=== PATIENT | female | born 2000 | race Caucasian/White ===

== ENCOUNTER 2022-11-14 16:05 | Inpatient (IN) | payer BC, SELFPAY ==
--- NOTE | ~2022-11-14 | CT_ITS ---
EXAMINATION: CT ABDOMEN AND PELVIS WITHOUT CONTRAST CLINICAL INFORMATION: Fever, abdominal/back pain plus UTI. COMPARISON: None TECHNIQUE: Multidetector volumetric imaging was performed from the superior aspect of the liver through the pubic symphysis. Sagittal and coronal reformatted images were obtained on the technologist's workstation. This CT examination was performed using dose optimization techniques as appropriate, variously including the following: *Automated exposure control *Adjustment of mA and/or kV according to patient size (this includes techniques or standardized protocols for targeted exams where dose is matched to indication/reason for exam; i.e. extremities or head) *Use of iterative reconstruction technique DLP: 403 mGy-cm FINDINGS: LUNG BASES: The visualized lung bases are unremarkable. LIVER, GALLBLADDER, AND BILIARY TREE: The liver is normal in size, shape, and attenuation. No focal hepatic lesion or biliary ductal dilatation is present. The gallbladder is unremarkable with no evidence of radiopaque gallstones, gallbladder wall thickening, or obvious pericholecystic inflammatory changes. PANCREAS: Unremarkable. SPLEEN: Unremarkable. ADRENAL GLANDS: Unremarkable. KIDNEYS AND URETERS: The kidneys are normal in size, shape, and attenuation. No hydronephrosis, hydroureter, or calculi seen. No perinephric stranding. There is a 1.3 cm cyst in the upper pole left kidney. BLADDER: Unremarkable. GASTROINTESTINAL TRACT: There is scattered stool and gas seen throughout the colon without any significant distention. The small bowel loops are normal caliber. The stomach is nondistended. ABDOMINAL WALL: No significant hernia is appreciated. LYMPH NODES: Normal. VASCULAR: Unremarkable. PELVIC VISCERA: The uterus is anteverted and appears unremarkable. Prominent hypodensity seen in the right ovary likely small cysts. There is no free free fluid. No abnormal pelvic lymphadenopathy. OSSEOUS STRUCTURES: No aggressive lytic or sclerotic process seen. CT/CT abdomen pelvis wo IV con IMPRESSION: 1. No acute intra-abdominal process seen. 2. Small cyst upper pole left kidney. No radiopaque urolith or hydroureteronephrosis. Fleischner guidelines were followed.
--- NOTE | 2022-11-14 16:21 | ED_ITS ---
HPI - Fever General Chief Complaint: Urogenital-Female <DANIEL Omer Last Filed: 11/14/22 16:29> Stated Complaint: vomiting,fever <DANIEL Omer Last Filed: 11/14/22 16:29> Time Seen by Provider: 11/14/22 19:58 <DANIEL Omer Last Filed: 11/14/22 16:29> Source: patient <DANIEL Reddy Last Filed: 11/14/22 21:01> Mode of arrival: ambulatory <DANIEL Reddy Last Filed: 11/14/22 21:01> Limitations: no limitations <DANIEL Reddy Last Filed: 11/14/22 21:01> History of Present Illness HPI Narrative: This 22-year-old female no significant medical history presenting to the emergency department with lower back pain for about a week ago we worsening, with associated fevers, chills, nausea, urinary frequency, urgency, and and suprapubic abdominal pain. Patient tells me she feels awful. She was seen at urgent care and was advised to come into the emergency department for further evaluation and treatment. Patient has no history of complicated UTIs. Denies chest pain, shortness of breath, diarrhea, vomiting, headache, vision changes, dizziness. <DANIEL Reddy Last Filed: 11/14/22 21:01> Related Data Allergies/Adverse Reactions: Allergies Allergy/AdvReac Type Severity Reaction Status Date / Time Penicillins Allergy Rash Verified 11/14/22 16:20 <DANIEL Omer Last Filed: 11/14/22 16:29> Review of Systems Review of Systems: Constitutional : No Weight loss, + Fever, + Chills, + Fatigue, + Malaise ENT/Mouth : No sore throat, No Rhinorrhea Eyes: No Eye Pain, No Swelling, No Redness Cardiovascular : No Chest Pain, No SOB, No Dyspnea on Exertion, No Orthopnea, No Edema, No Palpitations Respiratory : No Cough, No Sputum, No Wheezing Gastrointestinal : No Nausea, No Vomiting, No Diarrhea, No Constipation, + abdominal Pain, No Hematochezia, No Melena Genitourinary : No Dysuria, + Urinary Frequency, No Hematuria, Musculoskeletal : No joint pain, No Myalgias, No Joint Swelling, + flank pain Skin : No Skin Lesions, No rash Neuro : No Weakness, No Numbness, No Dizziness, No Headache Psych : No Anxiety/Panic, No Depression All other systems reviewed and are negative <DANIEL Reddy - Last Filed: 11/14/22 21:01> Yes all other systems are reviewed and are negative <DANIEL Reddy - Last Filed: 11/14/22 21:01> [facility] Past Medical History Attestation statement: The following information was validated with the patient. <DANIEL Reddy - Last Filed: 11/14/22 21:01> Source: old records reviewed and nursing notes reviewed <DANIEL Reddy - Last Filed: 11/14/22 21:01> Social History Social History: Social History Advance Directives: No Advance Directives Information Provided: Yes <DANIEL Omer - Last Filed: 11/14/22 16:29> Physical Exam Vital Signs: Vital Signs: Last Vital Signs Temp 98 F 11/14/22 20:10 Pulse 88 11/14/22 20:10 Resp 18 11/14/22 20:10 BP 112/74 11/14/22 16:22 Pulse Ox 100 11/14/22 20:10 O2 Del Method 11/14/22 20:10 BMI result Body Mass Index 25.0 <DANIEL Omer - Last Filed: 11/14/22 16:29> Vital Signs: Last Vital Signs Temp 98 F 11/14/22 20:10 Pulse 88 11/14/22 20:10 Resp 18 11/14/22 20:10 BP 112/74 11/14/22 16:22 Pulse Ox 100 11/14/22 20:10 O2 Del Method 11/14/22 20:10 BMI result Body Mass Index 25.0 Vital signs stable <DANIEL Reddy - Last Filed: 11/14/22 21:01> Appearance: Alert.? Oriented X3.? No acute distress.? patient's sick appearing. Head: Normocephalic, atraumatic, no step-offs or deformities Eyes: Pupils equal, round and reactive to light.? ENT: Pharynx normal.? Neck: Normal inspection.? Neck supple.? CVS: Normal heart rate and rhythm.? Pulses normal.? Respiratory: No respiratory distress.? Breath sounds normal.? Abdomen: Soft and nontender.? Skin: Skin warm and dry.? Normal skin color.? Normal skin turgor.? Extremities: No lower extremity edema.? No calf ttp. 5/5 strength to bilateral upper and lower extremities Neuro: Oriented X 3.? No motor deficit.? No sensory deficit. CN 2-12 intact <DANIEL Reddy - Last Filed: 11/14/22 21:01> Course Course Course Narrative: RME-16:22PM 22yoF with PMHX of PCOS and asthma who is presenting to the ED with c/o a fevers, chills, fatigue, myalgias, N.V and lower back pain and cloudy urine and abnormal discharge since Monday. Reports associated constipation. Went to an urgent care prior to arrival and had a UA and STD testing and was told that she had bacteria in her urine. Unsure about the STD results. She reports they gave her Motrin and Zofran although she threw that up. They sent her here for further evaluation treatment. Denies sore throat, cough, CP, SOB, hematuria, diarrhea or any other symptoms complaints or concerns at this time. Patient showed me the paperwork from the urgent care and patient was positive for nitrates and bacteria/leukocytes in her UA. Patient could possibly have UTI possible pyelo. Plan: 975 mg of Tylenol ordered at this time. Will obtain labs, blood cultures, lactic acid, UA, gonorrhea chlamydia for urine, RPR for possible syphilis, CT scan abdomen pelvis without IV contrast. Patient will be sent back to the waiting room to be evaluated in the ED. <DANIEL Omer - Last Filed: 11/14/22 16:29> Reevaluation(s) Reevaluation #1: CBC with leukocytosis 12.3 likely secondary to urinary tract infection. Chemistry unremarkable. Beta hCG negative, unlikely ectopic . UA w/ infection will cover w/ ceftriaxone will give fluids. Patient meeting SIRS but no meeting severe sepsis. CT of the abdomen pelvis with no signs of pyelonephritis no acute intra-abdominal process seen. Small cyst in the upper pole the left kidney. So planning to admit for complicated UTI. Discussed case with hospitalist who agrees. <DANIEL Reddy - Last Filed: 11/14/22 21:01> Time: 20:53 <DANIEL Reddy - Last Filed: 11/14/22 21:01> Medications Administered Generic Name Dose Route Start Last Admin Trade Name Freq PRN Reason Stop Dose Admin Sodium Chloride 1,000 mls @ 999 mls/hr 11/14/22 20:00 11/14/22 20:04 Ns IVCONT 11/14/22 21:00 999 mls/hr .Q1H1M CITLALI Administration Discontinued Medications Generic Name Dose Route Start Last Admin Trade Name Freq PRN Reason Stop Dose Admin Acetaminophen 975 mg 11/14/22 16:24 11/14/22 16:28 Acetaminophen 325 Mg Tablet PO 11/14/22 16:25 975 mg ONCE ONE Administration Ceftriaxone Sodium 1 gm/ 50 mls @ 100 mls/hr 11/14/22 19:49 11/14/22 20:04 Sodium Chloride IV 11/14/22 20:18 100 mls/hr ONCE ONE Administration <DANIEL Omer - Last Filed: 11/14/22 16:29> Medications Administered Generic Name Dose Route Start Last Admin Trade Name Freq PRN Reason Stop Dose Admin Sodium Chloride 1,000 mls @ 999 mls/hr 11/14/22 20:00 11/14/22 20:04 Ns IVCONT 11/14/22 21:00 999 mls/hr .Q1H1M CITLALI Administration Discontinued Medications Generic Name Dose Route Start Last Admin Trade Name Freq PRN Reason Stop Dose Admin Acetaminophen 975 mg 11/14/22 16:24 11/14/22 16:28 Acetaminophen 325 Mg Tablet PO 11/14/22 16:25 975 mg ONCE ONE Administration Ceftriaxone Sodium 1 gm/ 50 mls @ 100 mls/hr 11/14/22 19:49 11/14/22 20:04 Sodium Chloride IV 11/14/22 20:18 100 mls/hr ONCE ONE Administration <DANIEL Reddy - Last Filed: 11/14/22 21:01> Medical Decision Making Medical Decision Making MDM Narrative: 2021 22-year-old female presents with UTI symptoms, fatigue, malaise, subjective fevers and chills, nausea, flank pain, suprapubic abdominal pain physical exam benign however, patient sick appearing. Concerns for complicated UTI versus pyelonephritis versus obstructive uropathy. Unlikely ovarian torsion or ectopic . Plan at this time basic labs, urine, imaging. Will obtain blood cultures, lactic acid will give fluids, antibiotics for suspected UTI <DANIEL Reddy - Last Filed: 11/14/22 21:01> Differential Diagnosis Differential Diagnoses: The differential diagnosis associated with the presentation includes <DANIEL Reddy - Last Filed: 11/14/22 21:01> Concerns for complicated UTI versus pyelonephritis versus obstructive uropathy. Unlikely ovarian torsion or ectopic . <DANIEL Reddy - Last Filed: 11/14/22 21:01> Admission/Observation Consideration of admission/observation: Escalation of care including admission/observation considered <DANIEL Reddy - Last Filed: 11/14/22 21:01> likely <DANIEL Reddy - Last Filed: 11/14/22 21:01> Consult Healthcare Provider Management of the patient was discussed with: Hospitalist <DANIEL Reddy - Last Filed: 11/14/22 21:01> Lab Data MDM Lab Attestation statement: I reviewed the patient's lab results. <DANIEL Reddy - Last Filed: 11/14/22 21:01> Result Diagrams: 11/14/22 18:28 11/14/22 18:28 <DANIEL Omer - Last Filed: 11/14/22 16:29> Labs: Lab Results 11/14/22 11/14/22 11/14/22 Range/Units 18:28 18:28 18:28 WBC 12.3 H (4.8-10.8) X10*3/uL RBC 4.42 (4.20-5.50) X10*6/uL Hgb 12.3 (12.0-16.0) g/dl Hct 36.9 L (37.0-47.0) % MCV 83.5 (80.0-98.0) fL MCH 27.8 (27.0-33.0) pg MCHC 33.3 (31.0-35.0) g/dl RDW 12.5 (11.0-16.0) % Plt Count 266 (160-400) X10*3/uL MPV 9.8 (9.4-12.3) fL Immature Gran % (Auto) 0.3 (0.0-0.4) % Neut % (Auto) 80.8 H (45-73) % Lymph % (Auto) 6.7 L (20-40) % [place] % (Auto) 11.8 H (2-11) % Eos % (Auto) 0.0 (0-4) % Baso % (Auto) 0.4 (0-2) % Lymph # (Auto) 0.8 L (1.2-4.9) X10*3/uL [place] # (Auto) 1.5 H (0.1-1.2) X10*3/uL Eos # (Auto) 0.0 (0.0-0.4) X10*3/uL Baso # (Auto) 0.1 (0.0-0.2) X10*3/uL Abs Immat Gran (auto) 0.04 H (0.00-0.03) X10*3/uL Absolute Neuts (auto) 9.9 H (2.0-8.3) x10*3/uL Absolute Nucleated RBC 0.000 (0.0-0.012) X10*3/uL Nucleated RBC % (auto) 0.0 (0.0-0.2) /100WBC PT 15.7 H (10.0-13.1) SEC INR 1.4 H (0.9-1.1) Sodium 134 L (135-145) mmol/L Potassium 4.1 (3.3-5.1) mmol/L Chloride 102 (96-108) mmol/L Carbon Dioxide 22 (22-29) mmol/L Anion Gap 14 (12-20) BUN 9 (9-16) mg/dL Creatinine 0.82 (0.5-1.4) mg/dL Estim Creat Clear Calc 96.0 Estimated GFR > 60 Random Glucose 95 (60-115) mg/dL Lactic Acid (0.5-2.0) mmol/L Calcium 9.5 (8.4-10.2) mg/dL Magnesium 1.9 (1.6-2.6) mg/dL Total Bilirubin 1.0 (0.0-1.0) mg/dL AST 41 H (5-31) U/L ALT 36 H (0-31) U/L Alkaline Phosphatase 69 (39-117) U/L Total Protein 7.7 (6.5-8.0) g/dL Albumin 4.4 (3.5-5.0) g/dL Lipase 23 (8-78) U/L Beta HCG, Quant < 2 mIU/mL Urine Color Urine Appearance Urine pH (5.0-9.0) Ur Specific [place] (1.005-1.025) Urine Protein (Neg-Trace) mg/dL Urine Glucose (UA) (Negative) mg/dL Urine Ketones (Negative) mg/dL Urine Blood (Negative) Urine Nitrite (Negative) Ur Leukocyte Esterase (Negative) Urine RBC (0-2) /HPF Urine WBC (0-5) /HPF Ur Squamous Epith Cells (0-2) /HPF Urine Bacteria (None Seen) Hyaline Casts (0-2) /LPF 11/14/22 11/14/22 Range/Units 18:28 18:28 WBC (4.8-10.8) X10*3/uL RBC (4.20-5.50) X10*6/uL Hgb (12.0-16.0) g/dl Hct (37.0-47.0) % MCV (80.0-98.0) fL MCH (27.0-33.0) pg MCHC (31.0-35.0) g/dl RDW (11.0-16.0) % Plt Count (160-400) X10*3/uL MPV (9.4-12.3) fL Immature Gran % (Auto) (0.0-0.4) % Neut % (Auto) (45-73) % Lymph % (Auto) (20-40) % [place] % (Auto) (2-11) % Eos % (Auto) (0-4) % Baso % (Auto) (0-2) % Lymph # (Auto) (1.2-4.9) X10*3/uL [place] # (Auto) (0.1-1.2) X10*3/uL Eos # (Auto) (0.0-0.4) X10*3/uL Baso # (Auto) (0.0-0.2) X10*3/uL Abs Immat Gran (auto) (0.00-0.03) X10*3/uL Absolute Neuts (auto) (2.0-8.3) x10*3/uL Absolute Nucleated RBC (0.0-0.012) X10*3/uL Nucleated RBC % (auto) (0.0-0.2) /100WBC PT (10.0-13.1) SEC INR (0.9-1.1) Sodium (135-145) mmol/L Potassium (3.3-5.1) mmol/L Chloride (96-108) mmol/L Carbon Dioxide (22-29) mmol/L Anion Gap (12-20) BUN (9-16) mg/dL Creatinine (0.5-1.4) mg/dL Estim Creat Clear Calc Estimated GFR Random Glucose (60-115) mg/dL Lactic Acid 0.7 (0.5-2.0) mmol/L Calcium (8.4-10.2) mg/dL Magnesium (1.6-2.6) mg/dL Total Bilirubin (0.0-1.0) mg/dL AST (5-31) U/L ALT (0-31) U/L Alkaline Phosphatase (39-117) U/L Total Protein (6.5-8.0) g/dL Albumin (3.5-5.0) g/dL Lipase (8-78) U/L Beta HCG, Quant mIU/mL Urine Color Yellow Urine Appearance Cloudy Urine pH 6.5 (5.0-9.0) Ur Specific [place] 1.010 (1.005-1.025) Urine Protein Trace (Neg-Trace) mg/dL Urine Glucose (UA) Negative (Negative) mg/dL Urine Ketones 15 (Negative) mg/dL Urine Blood Small (1+) H (Negative) Urine Nitrite Negative (Negative) Ur Leukocyte Esterase Moderate (2+) H (Negative) Urine RBC 3-5 H (0-2) /HPF Urine WBC 21-50 H (0-5) /HPF Ur Squamous Epith Cells 3-5 (0-2) /HPF Urine Bacteria 4+ (None Seen) Hyaline Casts 0-2 (0-2) /LPF <DANIEL Omer - Last Filed: 11/14/22 16:29> Lab Results 11/14/22 11/14/22 11/14/22 Range/Units 18:28 18:28 18:28 WBC 12.3 H (4.8-10.8) X10*3/uL RBC 4.42 (4.20-5.50) X10*6/uL Hgb 12.3 (12.0-16.0) g/dl Hct 36.9 L (37.0-47.0) % MCV 83.5 (80.0-98.0) fL MCH 27.8 (27.0-33.0) pg MCHC 33.3 (31.0-35.0) g/dl RDW 12.5 (11.0-16.0) % Plt Count 266 (160-400) X10*3/uL MPV 9.8 (9.4-12.3) fL Immature Gran % (Auto) 0.3 (0.0-0.4) % Neut % (Auto) 80.8 H (45-73) % Lymph % (Auto) 6.7 L (20-40) % [place] % (Auto) 11.8 H (2-11) % Eos % (Auto) 0.0 (0-4) % Baso % (Auto) 0.4 (0-2) % Lymph # (Auto) 0.8 L (1.2-4.9) X10*3/uL [place] # (Auto) 1.5 H (0.1-1.2) X10*3/uL Eos # (Auto) 0.0 (0.0-0.4) X10*3/uL Baso # (Auto) 0.1 (0.0-0.2) X10*3/uL Abs Immat Gran (auto) 0.04 H (0.00-0.03) X10*3/uL Absolute Neuts (auto) 9.9 H (2.0-8.3) x10*3/uL Absolute Nucleated RBC 0.000 (0.0-0.012) X10*3/uL Nucleated RBC % (auto) 0.0 (0.0-0.2) /100WBC PT 15.7 H (10.0-13.1) SEC INR 1.4 H (0.9-1.1) Sodium 134 L (135-145) mmol/L Potassium 4.1 (3.3-5.1) mmol/L Chloride 102 (96-108) mmol/L Carbon Dioxide 22 (22-29) mmol/L Anion Gap 14 (12-20) BUN 9 (9-16) mg/dL Creatinine 0.82 (0.5-1.4) mg/dL Estim Creat Clear Calc 96.0 Estimated GFR > 60 Random Glucose 95 (60-115) mg/dL Lactic Acid (0.5-2.0) mmol/L Calcium 9.5 (8.4-10.2) mg/dL Magnesium 1.9 (1.6-2.6) mg/dL Total Bilirubin 1.0 (0.0-1.0) mg/dL AST 41 H (5-31) U/L ALT 36 H (0-31) U/L Alkaline Phosphatase 69 (39-117) U/L Total Protein 7.7 (6.5-8.0) g/dL Albumin 4.4 (3.5-5.0) g/dL Lipase 23 (8-78) U/L Beta HCG, Quant < 2 mIU/mL Urine Color Urine Appearance Urine pH (5.0-9.0) Ur Specific [place] (1.005-1.025) Urine Protein (Neg-Trace) mg/dL Urine Glucose (UA) (Negative) mg/dL Urine Ketones (Negative) mg/dL Urine Blood (Negative) Urine Nitrite (Negative) Ur Leukocyte Esterase (Negative) Urine RBC (0-2) /HPF Urine WBC (0-5) /HPF Ur Squamous Epith Cells (0-2) /HPF Urine Bacteria (None Seen) Hyaline Casts (0-2) /LPF 11/14/22 11/14/22 Range/Units 18:28 18:28 WBC (4.8-10.8) X10*3/uL RBC (4.20-5.50) X10*6/uL Hgb (12.0-16.0) g/dl Hct (37.0-47.0) % MCV (80.0-98.0) fL MCH (27.0-33.0) pg MCHC (31.0-35.0) g/dl RDW (11.0-16.0) % Plt Count (160-400) X10*3/uL MPV (9.4-12.3) fL Immature Gran % (Auto) (0.0-0.4) % Neut % (Auto) (45-73) % Lymph % (Auto) (20-40) % [place] % (Auto) (2-11) % Eos % (Auto) (0-4) % Baso % (Auto) (0-2) % Lymph # (Auto) (1.2-4.9) X10*3/uL [place] # (Auto) (0.1-1.2) X10*3/uL Eos # (Auto) (0.0-0.4) X10*3/uL Baso # (Auto) (0.0-0.2) X10*3/uL Abs Immat Gran (auto) (0.00-0.03) X10*3/uL Absolute Neuts (auto) (2.0-8.3) x10*3/uL Absolute Nucleated RBC (0.0-0.012) X10*3/uL Nucleated RBC % (auto) (0.0-0.2) /100WBC PT (10.0-13.1) SEC INR (0.9-1.1) Sodium (135-145) mmol/L Potassium (3.3-5.1) mmol/L Chloride (96-108) mmol/L Carbon Dioxide (22-29) mmol/L Anion Gap (12-20) BUN (9-16) mg/dL Creatinine (0.5-1.4) mg/dL Estim Creat Clear Calc Estimated GFR Random Glucose (60-115) mg/dL Lactic Acid 0.7 (0.5-2.0) mmol/L Calcium (8.4-10.2) mg/dL Magnesium (1.6-2.6) mg/dL Total Bilirubin (0.0-1.0) mg/dL AST (5-31) U/L ALT (0-31) U/L Alkaline Phosphatase (39-117) U/L Total Protein (6.5-8.0) g/dL Albumin (3.5-5.0) g/dL Lipase (8-78) U/L Beta HCG, Quant mIU/mL Urine Color Yellow Urine Appearance Cloudy Urine pH 6.5 (5.0-9.0) Ur Specific [place] 1.010 (1.005-1.025) Urine Protein Trace (Neg-Trace) mg/dL Urine Glucose (UA) Negative (Negative) mg/dL Urine Ketones 15 (Negative) mg/dL Urine Blood Small (1+) H (Negative) Urine Nitrite Negative (Negative) Ur Leukocyte Esterase Moderate (2+) H (Negative) Urine RBC 3-5 H (0-2) /HPF Urine WBC 21-50 H (0-5) /HPF Ur Squamous Epith Cells 3-5 (0-2) /HPF Urine Bacteria 4+ (None Seen) Hyaline Casts 0-2 (0-2) /LPF <DANIEL Reddy - Last Filed: 11/14/22 21:01> Independent Interpretation I performed an independent interpretation of an: CT Scan (CT/CT abdomen pelvis wo IV con IMPRESSION: 1. No acute intra- abdominal process seen. 2. Small cyst upper pole left kidney. No radiopaque urolith or hydroureteronephrosis. Fleischner guidelines were followed.) <DANIEL Reddy - Last Filed: 11/14/22 21:01> Radiology Impression Discussion of test interpretation with radiology: I have reviewed the radiologist's reading. <DANIEL Reddy - Last Filed: 11/14/22 21:01> Core Measures AMI core measures followed: Yes <DANIEL Reddy - Last Filed: 11/14/22 21:01> Measure exclusions: not indicated <DANIEL Reddy - Last Filed: 11/14/22 21:01> Critical Care Time Critical Care Time Critical Care Time: No <DANIEL Reddy - Last Filed: 11/14/22 21:01> Discharge Plan Discharge Clinical Impression: Urinary tract infection, Fever, Bilateral flank pain <DANIEL Omer Last Filed: 11/14/22 16:29> Patient Disposition: Admitted As Inpatient <DANIEL Omer - Last Filed: 11/14/22 16:29>
[2022-11-14 16:22] VITALS: BP 112/74; PULSE 112; RESP 18; TEMP 39.1; O2SAT 95; BMI 25.0
[2022-11-14] MEDS: Acetaminophen 325 MG TABLET 975 MG PO (16:28)
[2022-11-14 18:47] LABS: MANUAL DIFF FLAG NO
[2022-11-14 18:51] LABS: Basophils Absolute Auto 0.1 X10*3/uL (0.0-0.2); Basophils Percent Auto 0.4 % (0-2); Hematocrit 36.9 % (37.0-47.0); Hemoglobin 12.3 g/dl (12.0-16.0); Imm Gran Abs Auto 0.04 X10*3/uL (0.00-0.03); Imm Gran Pct Auto 0.3 % (0.0-0.4); Lymphocytes Absolute Auto 0.8 X10*3/uL (1.2-4.9); Lymphocytes Percent Auto 6.7 % (20-40); Mean Corpuscular HGB Conc 33.3 g/dl (31.0-35.0); Mean Corpuscular Hemoglobin 27.8 pg (27.0-33.0); Mean Corpuscular Volume 83.5 fL (80.0-98.0); Mean Platelet Volume 9.8 fL (9.4-12.3); Monocytes Absolute Auto 1.5 X10*3/uL (0.1-1.2); Monocytes Percent Auto 11.8 % (2-11); Neutrophils Absolute Auto 9.9 x10*3/uL (2.0-8.3); Neutrophils Percent Auto 80.8 % (45-73); Platelet Count 266 X10*3/uL (160-400); Red Blood Count 4.42 X10*6/uL (4.20-5.50); Red Cell Distribution Width 12.5 % (11.0-16.0); White Blood Count 12.3 X10*3/uL (4.8-10.8)
[2022-11-14 18:52] LABS: Appearance Urine Cloudy; Color Urine Yellow; Glucose Urine UA Negative (Negative); Leukocyte Esterase Urine Moderate (2+) (Negative); Nitrite Urine Negative (Negative); PH 6.5 (5.0-9.0); UMIC TRIGGER UACC YES; Urine Blood Small (1+) (Negative); Urine Ketones 15 mg/dL (Negative); Urine Protein Trace mg/dL (Neg-Trace)
[2022-11-14 18:58] LABS: Bacteria Urine 4+ (None Seen); Hyaline Casts Urine 0-2 /LPF (0-2); UACC Culture Trigger YES; WBC Urine 21-50 /HPF (0-5)
[2022-11-14 19:04] LABS: INTERNATIONAL NORM RATIO 1.4 (0.9-1.1); Prothrombin Time 15.7 SEC (10.0-13.1)
[2022-11-14 19:08] LABS: Lactic Acid 0.7 mmol/L (0.5-2.0)
[2022-11-14 19:20] LABS: Alanine Aminotransferase 36 U/L (0-31); Albumin Level 4.4 g/dL (3.5-5.0); Alkaline Phosphatase 69 U/L (39-117); Anion Gap 14 (12-20); Aspartate Amino Transferase 41 U/L (5-31); Blood Urea Nitrogen 9 mg/dL (9-16); Calcium 9.5 mg/dL (8.4-10.2); Carbon Dioxide 22 mmol/L (22-29); Chloride 102 mmol/L (96-108); Estimated Glomerular Filt Rate > 60; Glucose Random 95 mg/dL (60-115); Lipase 23 U/L (8-78); Magnesium 1.9 mg/dL (1.6-2.6); Potassium 4.1 mmol/L (3.3-5.1); Sodium 134 mmol/L (135-145); Total Protein 7.7 g/dL (6.5-8.0)
[2022-11-14 19:25] LABS: HCG Quantitative < 2 mIU/mL
[2022-11-14] MEDS: cefTRIAXone sodium 1 GM in 0.9 % Sodium Chloride 50 ML IV (20:04)
[2022-11-14] MEDS: 0.9 % Sodium Chloride 1,000 ML 999 ML IVCONT (20:04)
[2022-11-14 20:10] VITALS: PULSE 88; RESP 18; TEMP 36.6; O2SAT 100
--- NOTE | 2022-11-14 21:16 | PM.IMHP ---
History of Present Illness Date of Service: 11/14/22 Chief Complaint: Fevers, chills This is a 22-year-old female with no pertinent medical history and not on prescription medications who presents to the emergency department evaluation of fevers/chills and right lower back pain. Patient states it started about 4-5 days prior to presentation but worsened in the last 24 hours. Patient has been having right-sided lower pain and suprapubic abdominal discomfort. It is nonradiating, constant and without any relieving factors. Patient does have associated fever, chills nausea and nonbloody emesis. Unable to keep anything down and admits poor p.o. intake. States she feels unwell. Patient denies burning micturition but does endorse urinary hesitancy and increased urinary frequency. No history of UTIs. She denies chest discomfort, palpitations, shortness of breath, changes in bowel habits. In the emergency department, patient was found to be septic and urine was concerning for UTI. Review of Systems Constitutional: Constitutional: Reports body ache(s), Reports chills, Reports fever(s) and Reports lethargy Cardiovascular: Cardiovascular: Reports no additional cardiovascular complaints Respiratory: Respiratory: Reports no additional respiratory complaints Gastrointestinal: Gastrointestinal: Reports abdominal pain, Reports nausea and Reports vomiting Genitourinary: Genitourinary: Reports urinary hesitancy and Reports urinary urgency Neurologic: Reports system reviewed and no additional complaints, except as documented PMFSH Functional capacity: independent ambulation Pertinent family history: No family history of CAD Social History Advance Directives: No Advance Directives Information Provided: Yes Meds Allergies Allergy/AdvReac Type Severity Reaction Status Date / Time Penicillins Allergy Rash Verified 11/14/22 16:20 Active Medications: Current Medications Pharmacy Consult (Consult Rx Perform Med Rec) 1 each MISCELLANE ONCE PRN PRN Reason: Consult order Physical Exam Vital Signs and Narrative: Vital Signs: Last Vital Signs Temp 98 F 11/14/22 20:10 Pulse 88 11/14/22 20:10 Resp 18 11/14/22 20:10 BP 112/74 11/14/22 16:22 Pulse Ox 100 11/14/22 20:10 O2 Del Method 11/14/22 20:10 BMI result Body Mass Index 25.0 Young female lying in bed in mild distress Neck supple, no JVD Regular rate and rhythm, S1-S2 heard Regular breath sounds bilaterally, no wheezing or crackles appreciated Right CVA tenderness Patient is awake, alert and oriented to self, place, time and person ; no focal motor deficit Psych: Normal mood No pedal edema Results Labs 11/14/22 18:28 11/14/22 18:28 Labs: Laboratory Results - last 24 hr 11/14/22 11/14/22 11/14/22 18:28 18:28 18:28 MCV 83.5 MCH 27.8 MCHC 33.3 RDW 12.5 Plt Count 266 MPV 9.8 Immature Gran % (Auto) 0.3 Neut % (Auto) 80.8 H Lymph % (Auto) 6.7 L [place] % (Auto) 11.8 H Eos % (Auto) 0.0 Baso % (Auto) 0.4 Lymph # (Auto) 0.8 L [place] # (Auto) 1.5 H Eos # (Auto) 0.0 Baso # (Auto) 0.1 Abs Immat Gran (auto) 0.04 H Absolute Neuts (auto) 9.9 H Absolute Nucleated RBC 0.000 Nucleated RBC % (auto) 0.0 PT 15.7 H INR 1.4 H Anion Gap 14 Estim Creat Clear Calc 96.0 Estimated GFR > 60 Random Glucose 95 Lactic Acid Calcium 9.5 Magnesium 1.9 Total Bilirubin 1.0 AST 41 H ALT 36 H Alkaline Phosphatase 69 Total Protein 7.7 Albumin 4.4 Lipase 23 Beta HCG, Quant < 2 Urine Color Urine Appearance Urine pH Ur Specific [place] Urine Protein Urine Glucose (UA) Urine Ketones Urine Blood Urine Nitrite Ur Leukocyte Esterase Urine RBC Urine WBC Ur Squamous Epith Cells Urine Bacteria Hyaline Casts 11/14/22 11/14/22 18:28 18:28 MCV MCH MCHC RDW Plt Count MPV Immature Gran % (Auto) Neut % (Auto) Lymph % (Auto) [place] % (Auto) Eos % (Auto) Baso % (Auto) Lymph # (Auto) [place] # (Auto) Eos # (Auto) Baso # (Auto) Abs Immat Gran (auto) Absolute Neuts (auto) Absolute Nucleated RBC Nucleated RBC % (auto) PT INR Anion Gap Estim Creat Clear Calc Estimated GFR Random Glucose Lactic Acid 0.7 Calcium Magnesium Total Bilirubin AST ALT Alkaline Phosphatase Total Protein Albumin Lipase Beta HCG, Quant Urine Color Yellow Urine Appearance Cloudy Urine pH 6.5 Ur Specific [place] 1.010 Urine Protein Trace Urine Glucose (UA) Negative Urine Ketones 15 Urine Blood Small (1+) H Urine Nitrite Negative Ur Leukocyte Esterase Moderate (2+) H Urine RBC 3-5 H Urine WBC 21-50 H Ur Squamous Epith Cells 3-5 Urine Bacteria 4+ Hyaline Casts 0-2 Imaging Radiologist's Impressions: Impressions Abdomen/Pelvis CT 11/14/22 19:48 IMPRESSION: 1. No acute intra-abdominal process seen. 2. Small cyst upper pole left kidney. No radiopaque urolith or hydroureteronephrosis. Fleischner guidelines were followed. Assessment and Plan (1) Urinary tract infection: Status: Acute Plan This is a 22-year-old female with no pertinent medical history and not on prescription medications who presents to the emergency department evaluation of fevers/chills and right lower back pain. #. Sepsis due to right-sided clinical pyelonephritis: Will admit patient and initiate empiric IV Rocephin. Resuscitated with IV crystalloids. Blood culture and lactic acid obtained. urine culture pending. DVT prophylaxis: None. Patient is ambulatory Full code Regular diet Admit as inpatient and will require two night minimum hospital stay for IV antibiotics Time Spent With Patient Time: Total time managing care of this patient today ____ minutes. Quality Stroke Does the patient have a stroke diagnosis?: No VTE Prior VTE?: No VTE Risk Level:: Medical - low VTE Device Contraindication: Treatment Not Indicated VTE Drug Contraindication: Treatment Not Indicated
--- NOTE | 2022-11-14 21:39 | PHA.MEDREC ---
Pharmacy Consult ? Medication Reconciliation Pharmacy has completed the medication reconciliation.
[2022-11-14 22:16] LABS: COVID-19 Test Negative (Negative); IDNOW Serial# 08D9AD1C
[2022-11-14] MEDS: 0.9 % Sodium Chloride 500 ML IV (22:21)
--- NOTE | 2022-11-14 22:21 | MHC.CM.PN ---
CM met with admitted patient with bed assignment pending. Pt lives alone. No DME/services. Employed at [employer] in [place]. No covid vax. No PCP. No HCP. HCP reviewed, completed and signed. Copies given. Uploaded into [employer] and [facility] [employer]. HCP/mother Tana Bolton ([phone]). Mother lives in [place]. D/C plan: home without services. Pt will drive herself. Pt needs PCP prior to discharge. CM will follow for discharge needs.
[2022-11-14] MEDS: Ketorolac Tromethamine 30 MG/ML VIAL IVPUSH (22:53)
--- NOTE | 2022-11-14 23:15 | MHC.EDTECH ---
this pct assumed care of pt at 2315 ,vitals sign taken ,pitcher of water given pt use the bathroom ,urine sample sent to lab .
[2022-11-14 23:16] VITALS: BP 108/61; PULSE 72; RESP 16; TEMP 36.8; O2SAT 98
[2022-11-15] VITALS (8 sets, daily range): BP systolic 95–120; BP diastolic 46–75; PULSE 81–101; RESP 14–18; TEMP 36.6–39.5; O2SAT 93–100
--- NOTE | 2022-11-15 02:13 | MHC.EDTECH ---
pt rang for a warm blanket .
[2022-11-15] MEDS: Ibuprofen 600 MG TABLET PO (03:15)
[2022-11-15 03:38] LABS: CT PCR NOT DETECTED (Not Detect.); NG PCR NOT DETECTED (Not Detect.)
--- NOTE | 2022-11-15 04:00 | MHC.EDTECH ---
0400 rounding done, vitals sign taken ,rn Jennifer is aware of pt high temp and low bp ,fresh ice water given .
[2022-11-15] MEDS: Acetaminophen 325 MG TABLET 650 MG PO ×3 (04:38→21:07)
[2022-11-15 06:06] LABS: Basophils Percent Auto 0.3 % (0-2); Eosinophils Percent Auto 0.1 % (0-4); Hematocrit 33.8 % (37.0-47.0); Hemoglobin 11.2 g/dl (12.0-16.0); Imm Gran Abs Auto 0.03 X10*3/uL (0.00-0.03); Imm Gran Pct Auto 0.3 % (0.0-0.4); Lymphocytes Absolute Auto 0.9 X10*3/uL (1.2-4.9); Lymphocytes Percent Auto 7.9 % (20-40); MANUAL DIFF FLAG SCAN; Mean Corpuscular HGB Conc 33.1 g/dl (31.0-35.0); Mean Corpuscular Hemoglobin 27.9 pg (27.0-33.0); Mean Corpuscular Volume 84.1 fL (80.0-98.0); Mean Platelet Volume 9.5 fL (9.4-12.3); Monocytes Absolute Auto 1.5 X10*3/uL (0.1-1.2); Monocytes Percent Auto 14.3 % (2-11); Neutrophils Absolute Auto 8.3 x10*3/uL (2.0-8.3); Neutrophils Percent Auto 77.1 % (45-73); Platelet Count 244 X10*3/uL (160-400); Red Blood Count 4.02 X10*6/uL (4.20-5.50); Red Cell Distribution Width 12.7 % (11.0-16.0); SCAN SMEAR FLAG 1; White Blood Count 10.8 X10*3/uL (4.8-10.8)
[2022-11-15 06:26] LABS: Anion Gap 10 (12-20); Blood Urea Nitrogen 7 mg/dL (9-16); Calcium 8.2 mg/dL (8.4-10.2); Carbon Dioxide 23 mmol/L (22-29); Chloride 110 mmol/L (96-108); Creatinine Clr Calc Pharmacy 115.8; Estimated Glomerular Filt Rate > 60; Glucose Random 112 mg/dL (60-115); Potassium 3.8 mmol/L (3.3-5.1); Sodium 139 mmol/L (135-145)
[2022-11-15 06:30] LABS: SLIDE REVIEW VERIFIED
[2022-11-15] MEDS: 0.9 % Sodium Chloride Flush 3 ML SYRINGE IVFLUSH ×2 (08:18→19:36)
--- NOTE | 2022-11-15 11:08 | P.PNIM_ITS ---
Subjective Subjective Date of Service: 11/15/22 Interval History: f/u acute febrile pyelonephritis last fever 4 am 102, now afebril, mild suprpubic pain Physical Exam Vital Signs: Vital Signs: Last Vital Signs Temp 97.9 F 11/15/22 08:38 Pulse 81 11/15/22 08:38 Resp 14 11/15/22 08:38 BP 104/61 11/15/22 08:38 Pulse Ox 100 11/15/22 08:38 O2 Del Method 11/15/22 08:38 BMI result Body Mass Index 25.0 Const: Other: General: AO X 3, no acute distress Resp: CTA bilateral CVS: S1,S2,RRR GI: +BS, mild lower abd tenderness, no flank tenderness Skin: No rash Neuro: motor grossly intact Psych: appropriate affect Objective Data Active Medications Acetaminophen (Acetaminophen 325 Mg Tablet) 650 mg PO Q6H PRN PRN Reason: Pain, Mild (Pain Scale 1-3) Last Admin: 11/15/22 04:38 Dose: 650 mg Documented By: LUPE Ceftriaxone Sodium 1 gm/ (Sodium Chloride) 50 mls @ 100 mls/hr IV Q24H [facility] Melatonin (Melatonin 3 Mg Tablet) 6 mg PO BEDTIME PRN PRN Reason: Insomnia Ondansetron HCl (Ondansetron Hcl 4 Mg/2 Ml Vial) 4 mg IVPUSH Q8H PRN PRN Reason: Nausea and Vomiting Pharmacy Consult (Consult Rx Perform Med Rec) 1 each MISCELLANE ONCE PRN PRN Reason: Consult order Sodium Chloride (0.9 % Sodium Chloride Flush 3 Ml Syringe) 3 ml IVFLUSH [facility] Last Admin: 11/15/22 08:18 Dose: 3 ml Documented By: FLOR Labs 11/15/22 05:57 11/15/22 05:57 Labs: Laboratory Results - last 24 hr 11/14/22 11/14/22 11/14/22 18:28 18:28 18:28 MCV 83.5 MCH 27.8 MCHC 33.3 RDW 12.5 Plt Count 266 MPV 9.8 Immature Gran % (Auto) 0.3 Neut % (Auto) 80.8 H Lymph % (Auto) 6.7 L [place] % (Auto) 11.8 H Eos % (Auto) 0.0 Baso % (Auto) 0.4 Lymph # (Auto) 0.8 L [place] # (Auto) 1.5 H Eos # (Auto) 0.0 Baso # (Auto) 0.1 Abs Immat Gran (auto) 0.04 H Absolute Neuts (auto) 9.9 H Absolute Nucleated RBC 0.000 Nucleated RBC % (auto) 0.0 Smear Tech's Comments PT 15.7 H INR 1.4 H Anion Gap 14 Estim Creat Clear Calc 96.0 Estimated GFR > 60 Random Glucose 95 Lactic Acid Calcium 9.5 Magnesium 1.9 Total Bilirubin 1.0 AST 41 H ALT 36 H Alkaline Phosphatase 69 Total Protein 7.7 Albumin 4.4 Lipase 23 Beta HCG, Quant < 2 Urine Color Urine Appearance Urine pH Ur Specific [place] Urine Protein Urine Glucose (UA) Urine Ketones Urine Blood Urine Nitrite Ur Leukocyte Esterase Urine RBC Urine WBC Ur Squamous Epith Cells Urine Bacteria Hyaline Casts Chlam trachomat DNA PCR COVID-19 (ANEUDY) COVID-19 Clin Com N.gonorrhoeae DNA (PCR) 11/14/22 11/14/22 11/14/22 18:28 18:28 21:49 MCV MCH MCHC RDW Plt Count MPV Immature Gran % (Auto) Neut % (Auto) Lymph % (Auto) [place] % (Auto) Eos % (Auto) Baso % (Auto) Lymph # (Auto) [place] # (Auto) Eos # (Auto) Baso # (Auto) Abs Immat Gran (auto) Absolute Neuts (auto) Absolute Nucleated RBC Nucleated RBC % (auto) Smear Tech's Comments PT INR Anion Gap Estim Creat Clear Calc Estimated GFR Random Glucose Lactic Acid 0.7 Calcium Magnesium Total Bilirubin AST ALT Alkaline Phosphatase Total Protein Albumin Lipase Beta HCG, Quant Urine Color Yellow Urine Appearance Cloudy Urine pH 6.5 Ur Specific [place] 1.010 Urine Protein Trace Urine Glucose (UA) Negative Urine Ketones 15 Urine Blood Small (1+) H Urine Nitrite Negative Ur Leukocyte Esterase Moderate (2+) H Urine RBC 3-5 H Urine WBC 21-50 H Ur Squamous Epith Cells 3-5 Urine Bacteria 4+ Hyaline Casts 0-2 Chlam trachomat DNA PCR COVID-19 (ANEUDY) Negative COVID-19 Clin Com See Note N.gonorrhoeae DNA (PCR) 11/14/22 11/15/22 11/15/22 23:30 05:57 05:57 MCV 84.1 MCH 27.9 MCHC 33.1 RDW 12.7 Plt Count 244 MPV 9.5 Immature Gran % (Auto) 0.3 Neut % (Auto) 77.1 H Lymph % (Auto) 7.9 L [place] % (Auto) 14.3 H Eos % (Auto) 0.1 Baso % (Auto) 0.3 Lymph # (Auto) 0.9 L [place] # (Auto) 1.5 H Eos # (Auto) 0.0 Baso # (Auto) 0.0 Abs Immat Gran (auto) 0.03 Absolute Neuts (auto) 8.3 Absolute Nucleated RBC 0.000 Nucleated RBC % (auto) 0.0 Smear Tech's Comments VERIFIED PT INR Anion Gap 10 L Estim Creat Clear Calc 115.8 Estimated GFR > 60 Random Glucose 112 Lactic Acid Calcium 8.2 L D Magnesium Total Bilirubin AST ALT Alkaline Phosphatase Total Protein Albumin Lipase Beta HCG, Quant Urine Color Urine Appearance Urine pH Ur Specific [place] Urine Protein Urine Glucose (UA) Urine Ketones Urine Blood Urine Nitrite Ur Leukocyte Esterase Urine RBC Urine WBC Ur Squamous Epith Cells Urine Bacteria Hyaline Casts Chlam trachomat DNA PCR NOT DETECTED COVID-19 (ANEUDY) COVID-19 Clin Com N.gonorrhoeae DNA (PCR) NOT DETECTED Microbiology Microbiology Results: Microbiology 11/14/22 18:59 Urine Culture - Preliminary Urine clean catch - Urine biggs top Gram negative cecily Assessment and Plan (1) Urinary tract infection: Status: Acute (2) Sepsis: Status: Acute Plan ?22-year-old female with no pertinent medical history and not on prescription medications who presents to the emergency department evaluation of fevers/chills and right lower back pain. ? #.? Sepsis due to right-sided clinical pyelonephritis with high grade temp responding to IV Abx, Urinc Cx gram negative cecily continue Rocephin for now, if remains afebril, dc in the morning # constipation mom ? DVT prophylaxis:? None.? Patient is ambulatory Full code Regular diet Need for inpatient: IV Abx for sepsis d/t acute pyelonephritis Time Spent With Patient Time: Total time managing care of this patient today ____ minutes. Quality Stroke Does the patient have a stroke diagnosis?: No VTE Prior VTE?: No VTE Risk Level:: Medical - low VTE Device Contraindication: Treatment Not Indicated VTE Drug Contraindication: Treatment Not Indicated
[2022-11-15] MEDS: Ketorolac Tromethamine 15 MG/ML VIAL IVPUSH ×2 (17:22→23:19)
[2022-11-15] MEDS: cefTRIAXone sodium 1 GM in 0.9 % Sodium Chloride 50 ML IV (19:35)
[2022-11-15] MEDS: ondansetron HCL 4 MG/2 ML VIAL IVPUSH (22:13)
[2022-11-16 03:32] VITALS: BP 95/51; PULSE 70; RESP 18; TEMP 36.6; O2SAT 100
[2022-11-16 04:08] LABS: Syphilis Screen Nonreactive (Nonreactive)
[2022-11-16 07:45] VITALS: BP 115/58; PULSE 87; RESP 18; TEMP 37.2; O2SAT 99
[2022-11-16] MEDS: Ketorolac Tromethamine 15 MG/ML VIAL IVPUSH (08:41)
[2022-11-16] MEDS: 0.9 % Sodium Chloride Flush 3 ML SYRINGE IVFLUSH (08:42)
--- NOTE | 2022-11-16 10:24 | PM.DS ---
DS: Providers Provider Date of Service: 11/16/22 Date of admission: 11/14/22 21:17 Primary care physician: None Physician DS: Diagnosis Discharge Diagnosis (1) Urinary tract infection: Status: Acute (2) Sepsis: Status: Acute DS: Summary Hospital Course Hospital Course: Chief Complaint: Fevers, chills This is a 22-year-old female with no pertinent medical history and not on prescription medications who presents to the emergency department evaluation of fevers/chills and right lower back pain. Patient states it started about 4-5 days prior to presentation but worsened in the last 24 hours.? Patient has been having right-sided lower pain and suprapubic abdominal discomfort.? It is nonradiating, constant and without any relieving factors.? Patient does have associated fever, chills nausea and nonbloody emesis.? Unable to keep anything down and admits poor p.o. intake.? States she feels unwell.? Patient denies burning micturition but does endorse urinary hesitancy and increased urinary frequency.? No history of UTIs.? She denies chest discomfort, palpitations, shortness of breath, changes in bowel habits. ? In the emergency department, patient was found to be septic and urine was concerning for UTI. Hospital course: Patient was admitted for clinical pyelonephritis with fevers and treated with IV ceftriaxone, urine culture grew e coli sensitive to ceftriaxone and will be treated for 10 days total. Blood cultures thus far negative. Time Spent with Patient Time attestation: Total time managing care of this patient today ____ minutes. Discharge coordination time: Greater than 30 minutes Quality: Safe Use of Opioids Does Pt have an Active Cancer Diagnosis on the Problem List?: No Quality: Stroke Does the patient have a stroke diagnosis?: No Physical Exam Vital Signs: Vital Signs: Last Vital Signs Temp 98.9 F 11/16/22 07:45 Pulse 87 11/16/22 07:45 Resp 18 11/16/22 07:45 BP 115/58 L 11/16/22 07:45 Pulse Ox 99 11/16/22 07:45 O2 Del Method 11/16/22 07:45 BMI result Body Mass Index 25.0 DS: Data Data Completed and Pending Labs on day of discharge: Laboratory Results - last 24 hr 11/14/22 18:28 T.pallidum Ab (EIA) Nonreactive Preliminary micro results at discharge 11/14/22 18:28 Blood Culture - Preliminary Blood - Venous No growth after 24 hours. 11/14/22 18:28 Blood Culture - Preliminary Blood - Venous No growth after 24 hours. Discharge Plan Discharge Anticipated Discharge Date/Time: 11/16/22 10:27 Patient Disposition: Home, Self-Care Discharge Diagnosis: Sepsis acute pyelonephritis Referrals: Physician,None [Primary Care Provider] - 1 Week Discharge Medications: New cefuroxime axetil 500 mg Tablet 500 mg PO BID Qty: 20 0RF Rx Instructions: tolerated this medication in the hospital Continued ascorbic acid (vitamin C) 500 mg Tablet 500 mg PO DAILY cholecalciferol (vitamin D3) [Vitamin D3] 25 mcg (1,000 unit) Tablet 25 mcg PO DAILY Diet: Advance to usual diet Activity on Discharge: As tolerated Stand Alone Forms: Patient Portal Discharge page Care Plan Goals: Full reocvery Health Concerns: Sepsis--resolved acute Pyelonephritis, UTI is expected to fully resolve Plan of Treatment: Take Cefuroxime as recommended and follow up with your Doctor in a week, plese make sure to take all the antibiotics even if you feel better, this to ensure that the infection is fully eradicated. Assessment: see above
[2022-11-16 12:07] VITALS: TEMP 36.6
--- NOTE | 2022-11-16 12:12 | MHC.CM.PN ---
pt dcd home with no skilled servcies ordered by
== END 2022-11-16 14:58 | disposition home or self-care (01) | DRG 720 ==
LOC: HO.ED 21:01 → HO.EDOVER 21:24 → HO.S3 11-15 11:19
PROVIDERS: Physician Assistant; Physician Assistant Medical; Admitting Provider Student in an Organized Health Care Education/Training Program; Emergency Provider Emergency Medicine Emergency Medical Services; Visit Provider Internal Medicine
DX: A41.9 Sepsis, unspecified organism (principal); N10 Acute pyelonephritis; B96.20 Unspecified Escherichia coli [E. coli] as the cause of diseases classified elsewhere; K59.00 Constipation, unspecified; E28.2 Polycystic ovarian syndrome; Z20.822 Contact with and (suspected) exposure to COVID-19; Z88.0 Allergy status to penicillin; Z79.899 Other long term (current) drug therapy
CPT/HCPCS: 0353U; 36415; 74176; 80048; 80053; 81001; 83605; 83690; 83735; 84702; 85025; 85610; 86780; 87040; 87086; 87088; 87186; 87635; 99285; J0696; J1885; J2405

== ENCOUNTER 2022-12-01 15:21 | Emergency (ER) | payer BC, SELFPAY ==
--- NOTE | ~2022-12-01 | US_ITS ---
Examination: Ultrasound pelvis. CLINICAL INDICATION: Lower pelvic pain. TECHNIQUE: Transabdominal and transvaginal imaging of pelvis is performed. The uterus is anteverted measuring 7.4 cm in length, 4.0 cm in AP and 5.0 cm wide. Endometrial thickness measures 1.0 cm. No focal lesion seen. The right ovary measures 4.0 x 2.4 x 2.3 cm and volume 11.56 mL 2 x 1.7 cm and volume 15.7 mL. There are multiple small follicular cysts seen in the left ovary the largest cyst measuring. It appears unremarkable. There is multiple follicular cysts seen in. There are multiple follicular cysts seen in right ovary with the largest cyst measuring 1.8 x 1.4 x 1.5 cm. The left ovary measures 3.0 x 2.2 x 1.7 cm and volume 5.87 mL. There is no free fluid in the cul-de-sac. US/US pelvic and transvaginal IMPRESSION: Unremarkable uterus. Multiple small follicular cysts with the largest cyst measuring 1.8 cm right ovary. Left ovary is unremarkable.
--- NOTE | ~2022-12-01 | CT_ITS ---
EXAMINATION: CT ABDOMEN AND PELVIS WITHOUT CONTRAST CLINICAL INFORMATION: Left flank pain COMPARISON: CT abdomen pelvis 11/14/2022 TECHNIQUE: Multidetector volumetric imaging was performed from the superior aspect of the liver through the pubic symphysis. Sagittal and coronal reformatted images were obtained on the technologist's workstation. This CT examination was performed using dose optimization techniques as appropriate, variously including the following: *Automated exposure control *Adjustment of mA and/or kV according to patient size (this includes techniques or standardized protocols for targeted exams where dose is matched to indication/reason for exam; i.e. extremities or head) *Use of iterative reconstruction technique DLP: 575 mGy-cm FINDINGS: LUNG BASES: Unremarkable. ABDOMINAL AND PELVIC WALL: Unremarkable. LIVER AND BILIARY TREE: Unremarkable. GALLBLADDER: Unremarkable. PANCREAS: Unremarkable. SPLEEN: Unremarkable. ADRENAL GLANDS: Unremarkable. KIDNEYS AND URETERS: No hydronephrosis or nephrolithiasis. Fluid attenuation Bosniak 1 left renal cyst, no follow-up imaging recommended. GASTROINTESTINAL TRACT: Colonic diverticulosis without evidence of diverticulitis. No pericecal inflammatory change to suggest appendicitis. VASCULAR: Unremarkable. LYMPH NODES/PERITONEUM: No lymphadenopathy. FREE FLUID: None. BLADDER: Unremarkable. PELVIC VISCERA: The right ovary is asymmetrically mildly enlarged with respect to the contralateral side. OSSEOUS STRUCTURES: Stable dense sclerotic lesion in the left iliac bone which may reflect a bone island. CT/CT abdomen pelvis wo IV con IMPRESSION: No hydronephrosis or nephrolithiasis. The right ovary is asymmetrically mildly enlarged with respect to the contralateral side, which could be further evaluated with dedicated pelvic ultrasound if warranted clinically.
[2022-12-01 15:24] VITALS: BP 100/68; PULSE 79; RESP 18; TEMP 36.6; O2SAT 100; BMI 25.0
--- NOTE | 2022-12-01 15:26 | ED.GENADULT ---
HPI - General Adult General Chief complaint: Back Pain/Injury <DANIEL Reddy - Last Filed: 12/01/22 15:28> Stated complaint: Lower back pain/kidney area <DANIEL Reddy - Last Filed: 12/01/22 15:28> Time Seen by Provider: 12/01/22 17:10 <DANIEL Reddy - Last Filed: 12/01/22 15:28> Source: patient and RN notes reviewed <Anton Becerra - Last Filed: 12/01/22 21:40> Mode of arrival: ambulatory <Anton Becerra - Last Filed: 12/01/22 21:40> Limitations: no limitations <Anton Becerra - Last Filed: 12/01/22 21:40> History of Present Illness HPI narrative: 22-year-old female with past medical history significant for PCOS presents for evaluation of lower abdominal and right lower back pain The patient was seen here 11/14/2022 for right lower back pain, she was seen here and diagnosed with a UTI. She completed her antibiotics but states her symptoms have persisted. She does not feel that her pain radiates around to the abdomen but she also has lower abdominal pain. Patient states she has a history of polycystic ovaries but she has not had any cyst that she knows of the last couple of years. She states that she does not currently have any abnormal vaginal bleeding or discharge. She states that she is not sexually active and is not on any control Patient reports that her pain is currently a 3/10 Her back pain is worse with movement. She denies any fevers, chills <Anton Becerra - Last Filed: 12/01/22 21:40> Related Data Home medications: Home Medications Medication Instructions Recorded Confirmed ascorbic acid (vitamin C) 500 mg 500 mg PO DAILY 11/14/22 11/14/22 tablet cholecalciferol (vitamin D3) 25 25 mcg PO DAILY 11/14/22 11/14/22 mcg (1,000 unit) tablet (Vitamin D3) Previous Rx's Medication Instructions Recorded cefuroxime axetil 500 mg tablet 500 mg PO BID #20 tabs 11/16/22 <DANIEL Reddy Last Filed: 12/01/22 15:28> Allergies/adverse reactions: Allergies Allergy/AdvReac Type Severity Reaction Status Date / Time Penicillins Allergy Rash Verified 11/14/22 16:20 <DANIEL Reddy - Last Filed: 12/01/22 15:28> Review of Systems Constitutional: Constitutional: Reports as per HPI, Denies chills, Denies fatigue, Denies fever(s) and Denies headache(s) <Anton Becerra - Last Filed: 12/01/22 21:40> ENT: Denies headache(s) <Anton [place] - Last Filed: 12/01/22 21:40> Cardiovascular: Cardiovascular: Denies chest pain and Denies dyspnea <Anton [place] - Last Filed: 12/01/22 21:40> Respiratory: Respiratory: Denies cough and Denies dyspnea <Anton [place] - Last Filed: 12/01/22 21:40> Gastrointestinal: Gastrointestinal: Reports abdominal pain, Denies constipation and Denies vomiting <Anton [place] - Last Filed: 12/01/22 21:40> Genitourinary: Genitourinary: Denies dysuria <Anton [place] - Last Filed: 12/01/22 21:40> Musculoskeletal: Musculoskeletal: Reports back pain <Anton [place] - Last Filed: 12/01/22 21:40> Neurologic: Denies headache(s) and Denies focal weakness <Anton [place] - Last Filed: 12/01/22 21:40> Endocrine: Endocrine: Denies fatigue <Antonflorinda Rodriguezy - Last Filed: 12/01/22 21:40> [facility] Social History Social History: Social History Household Members: None Housing: Apartment Do you presently have visiting nurse or other home services: No Patient Tobacco Use Status: Never used Tobacco Smoked in Last 30 Days: No Use of substances other than those prescribed or required for medical reasons: Yes Substance Use Type: Marijuana Substance Use Frequency: Occasionally Last Used Substance: Days (ago) Advance Directives: No Advance Directives Information Provided: No service: No Current occupational status: employed and student <DANIEL Reddy - Last Filed: 12/01/22 15:28> Physical Exam ED Vital Signs: Vital Signs - 24 hr 12/01/22 15:24 12/01/22 18:00 Temperature 97.8 F 98.5 F Pulse Rate 79 80 Respiratory Rate 18 16 Blood Pressure 100/68 96/61 Pulse Oximetry 100 100 Oxygen Delivery Method Room Air Room Air BMI result Body Mass Index 25.0 <DANIEL Reddy - Last Filed: 12/01/22 15:28> Vital Signs - 24 hr 12/01/22 15:24 12/01/22 18:00 Temperature 97.8 F 98.5 F Pulse Rate 79 80 Respiratory Rate 18 16 Blood Pressure 100/68 96/61 Pulse Oximetry 100 100 Oxygen Delivery Method Room Air Room Air BMI result Body Mass Index 25.0 <Anton - Last Filed: 12/01/22 21:40> Const General: healthy appearing, comfortable, no acute distress, alert and awake < - Last Filed: 12/01/22 21:40> Nutritional Appearance: well nourished < - Last Filed: 12/01/22 21:40> Orientation/consciousness: patient oriented x3 < - Last Filed: 12/01/22 21:40> HENMT Head: Yes normocephalic and Yes atraumatic < Last Filed: 12/01/22 21:40> Throat: Yes posterior oropharynx normal < - Last Filed: 12/01/22 21:40> Eyes Eyelids: Yes eyelids normal < Last Filed: 12/01/22 21:40> Conjunctivae: conjunctivae normal < - Last Filed: 12/01/22 21:40> Sclerae: sclerae normal < Last Filed: 12/01/22 21:40> Corneas: corneas normal < Last Filed: 12/01/22 21:40> Pupils: Equal, round and reactive pupils present < - Last Filed: 12/01/22 21:40> EOM: EOMs intact bilaterally < - Last Filed: 12/01/22 21:40> Neck Neck: Yes full ROM < Last Filed: 12/01/22 21:40> Resp Effort & Inspection: normal respiratory effort, able to speak in complete sentences, no audible wheezes and not labored < Last Filed: 12/01/22 21:40> Auscultation: clear to auscultation bilaterally < Last Filed: 12/01/22 21:40> Cardio Rate: regular rate < Last Filed: 12/01/22 21:40> Rhythm: regular rhythm < Last Filed: 12/01/22 21:40> GI Inspection: No distended < Last Filed: 12/01/22 21:40> Palpation (GI): Soft to palpation, not firm, Tenderness to palpation present (GI) in the LLQ, in the RLQ and suprapubicly, no guarding and not rigid < Last Filed: 12/01/22 21:40> Auscultation: normoactive bowel sounds < Last Filed: 12/01/22 21:40> Skin General skin exam: no rashes or lesions noted and elasticity normal < Last Filed: 12/01/22 21:40> Neuro General: patient oriented x3 < Last Filed: 12/01/22 21:40> Cranial nerves: Yes Equal, round and reactive pupils present and Yes Bilaterally intact EOM present < Last Filed: 12/01/22 21:40> Cognition (Neuro): normal cognition < Last Filed: 12/01/22 21:40> Extrem Other: Moving all extremities well without any obvious deformities < Last Filed: 12/01/22 21:40> Course Course Course Narrative: This is an RME: Additional HPI, ROS, PE not included below will be deferred to primary provider. 22-year-old female presents for evaluation right sided flank pain, has a known UTI, pain is intermittent in nature, sharp, stabbing, severe. Pain has been going on for few on resolving. Patient is concerned about kidney infection. Denies fevers, chills, nausea, vomiting, abdominal pain, headache, vision changes, dizziness, chest pain, shortness of breath. Physical exam with discomfort with palpation of right-sided flank region. Plan labs, imaging, urine. <DANIEL Reddy - Last Filed: 12/01/22 15:28> Reevaluation(s) Reevaluation #1: Patient's CT scan report showed a mildly enlarged right ovary which was fully evaluate with ultrasound which shows an ovarian cyst but no evidence of torsion. By my read the CT scan of the pelvis showed moderate constipation as well. No evidence of obstruction the radiology report. This was all discussed with the patient <Anton Becerra - Last Filed: 12/01/22 21:40> Time: 21:38 <Anton Becerra - Last Filed: 12/01/22 21:40> Medications Administered Discontinued Medications Generic Name Dose Route Start Last Admin Trade Name Freq PRN Reason Stop Dose Admin Sodium Chloride 1,000 mls @ 999 mls/hr 12/01/22 15:30 12/01/22 17:16 Ns IV 12/01/22 16:30 Infused .Q1H1M CITLALI Infusion Ketorolac Tromethamine 30 mg 12/01/22 15:28 12/01/22 16:19 Ketorolac Tromethamine 15 Mg/Ml Vial IM 12/01/22 15:29 30 mg ONCE ONE Administration <DANIEL Reddy - Last Filed: 12/01/22 15:28> Medications Administered Discontinued Medications Generic Name Dose Route Start Last Admin Trade Name Freq PRN Reason Stop Dose Admin Sodium Chloride 1,000 mls @ 999 mls/hr 12/01/22 15:30 12/01/22 17:16 Ns IV 12/01/22 16:30 Infused .Q1H1M CITLALI Infusion Ketorolac Tromethamine 30 mg 12/01/22 15:28 12/01/22 16:19 Ketorolac Tromethamine 15 Mg/Ml Vial IM 12/01/22 15:29 30 mg ONCE ONE Administration <Anton Becerra - Last Filed: 12/01/22 21:40> Medical Decision Making Medical Decision Making [facility] Narrative: 22-year-old female with past medical history significant for polycystic ovarian syndrome presents for evaluation of back pain abdominal pain. She states his symptoms feel similar to when she had a UTI 2 weeks ago. Her vital signs are stable. Her UA is completely negative with no signs of infection or blood. Lab work is within normal limits. CT scan of the abdomen pelvis is pending. I feel that obstructive uropathy is less likely given there is no blood in the urine. Will get an ultrasound of pelvis to evaluate for ovarian cyst and rule out torsion. <Anton Becerra - Last Filed: 12/01/22 21:40> Differential Diagnosis UTI Pyelonephritis Obstructive uropathy Ovarian cyst Ovarian torsion Constipation Muscle strain <Anton Becerra - Last Filed: 12/01/22 21:40> Lab Data [facility] Lab Attestation statement: I reviewed the patient's lab results. <Anton Becerra - Last Filed: 12/01/22 21:40> No significant lab abnormalities <Anton Becerra - Last Filed: 12/01/22 21:40> Result Diagrams: 12/01/22 15:39 12/01/22 15:39 <DANEIL Reddy - Last Filed: 12/01/22 15:28> Labs: Lab Results 12/01/22 12/01/22 12/01/22 Range/Units 15:36 15:39 15:39 WBC 6.8 (4.8-10.8) X10*3/uL RBC 4.33 (4.20-5.50) X10*6/uL Hgb 12.1 (12.0-16.0) g/dl Hct 36.7 L (37.0-47.0) % MCV 84.8 (80.0-98.0) fL MCH 27.9 (27.0-33.0) pg MCHC 33.0 (31.0-35.0) g/dl RDW 12.8 (11.0-16.0) % Plt Count 333 D (160-400) X10*3/uL MPV 9.7 (9.4-12.3) fL Immature Gran % (Auto) 0.3 (0.0-0.4) % Neut % (Auto) 64.1 (45-73) % Lymph % (Auto) 27.6 (20-40) % [place] % (Auto) 6.5 (2-11) % Eos % (Auto) 0.6 (0-4) % Baso % (Auto) 0.9 (0-2) % Lymph # (Auto) 1.9 (1.2-4.9) X10*3/uL [place] # (Auto) 0.4 (0.1-1.2) X10*3/uL Eos # (Auto) 0.0 (0.0-0.4) X10*3/uL Baso # (Auto) 0.1 (0.0-0.2) X10*3/uL Abs Immat Gran (auto) 0.02 (0.00-0.03) X10*3/uL Absolute Neuts (auto) 4.4 (2.0-8.3) x10*3/uL Absolute Nucleated RBC 0.000 (0.0-0.012) X10*3/uL Nucleated RBC % (auto) 0.0 (0.0-0.2) /100WBC Sodium 138 (135-145) mmol/L Potassium 5.2 H D (3.3-5.1) mmol/L Chloride 103 (96-108) mmol/L Carbon Dioxide 27 (22-29) mmol/L Anion Gap 13 (12-20) BUN 7 L (9-16) mg/dL Creatinine 0.75 (0.5-1.4) mg/dL Estim Creat Clear Calc 105.0 Estimated GFR > 60 Random Glucose 87 (60-115) mg/dL Calcium 9.6 D (8.4-10.2) mg/dL Magnesium 1.8 (1.6-2.6) mg/dL Total Bilirubin 0.6 (0.0-1.0) mg/dL AST 16 (5-31) U/L ALT 14 (0-31) U/L Alkaline Phosphatase 55 (39-117) U/L Total Protein 7.3 (6.5-8.0) g/dL Albumin 4.2 (3.5-5.0) g/dL Urine Color Urine Appearance Urine pH (5.0-9.0) Ur Specific [place] (1.005-1.025) Urine Protein (Neg-Trace) mg/dL Urine Glucose (UA) (Negative) mg/dL Urine Ketones (Negative) mg/dL Urine Blood (Negative) Urine Nitrite (Negative) Ur Leukocyte Esterase (Negative) Urine Test (NEGATIVE) COVID-19 (ANEUDY) Negative (Negative) COVID-19 Clin Com See Note 12/01/22 12/01/22 Range/Units 15:41 15:41 WBC (4.8-10.8) X10*3/uL RBC (4.20-5.50) X10*6/uL Hgb (12.0-16.0) g/dl Hct (37.0-47.0) % MCV (80.0-98.0) fL MCH (27.0-33.0) pg MCHC (31.0-35.0) g/dl RDW (11.0-16.0) % Plt Count (160-400) X10*3/uL MPV (9.4-12.3) fL Immature Gran % (Auto) (0.0-0.4) % Neut % (Auto) (45-73) % Lymph % (Auto) (20-40) % [place] % (Auto) (2-11) % Eos % (Auto) (0-4) % Baso % (Auto) (0-2) % Lymph # (Auto) (1.2-4.9) X10*3/uL [place] # (Auto) (0.1-1.2) X10*3/uL Eos # (Auto) (0.0-0.4) X10*3/uL Baso # (Auto) (0.0-0.2) X10*3/uL Abs Immat Gran (auto) (0.00-0.03) X10*3/uL Absolute Neuts (auto) (2.0-8.3) x10*3/uL Absolute Nucleated RBC (0.0-0.012) X10*3/uL Nucleated RBC % (auto) (0.0-0.2) /100WBC Sodium (135-145) mmol/L Potassium (3.3-5.1) mmol/L Chloride (96-108) mmol/L Carbon Dioxide (22-29) mmol/L Anion Gap (12-20) BUN (9-16) mg/dL Creatinine (0.5-1.4) mg/dL Estim Creat Clear Calc Estimated GFR Random Glucose (60-115) mg/dL Calcium (8.4-10.2) mg/dL Magnesium (1.6-2.6) mg/dL Total Bilirubin (0.0-1.0) mg/dL AST (5-31) U/L ALT (0-31) U/L Alkaline Phosphatase (39-117) U/L Total Protein (6.5-8.0) g/dL Albumin (3.5-5.0) g/dL Urine Color Yellow Urine Appearance Clear Urine pH 7.0 (5.0-9.0) Ur Specific [place] <= 1.005 (1.005-1.025) Urine Protein Negative (Neg-Trace) mg/dL Urine Glucose (UA) Negative (Negative) mg/dL Urine Ketones Negative (Negative) mg/dL Urine Blood Negative (Negative) Urine Nitrite Negative (Negative) Ur Leukocyte Esterase Negative (Negative) Urine Test NEGATIVE (NEGATIVE) COVID-19 (ANEUDY) (Negative) COVID-19 Clin Com <DANIEL Reddy - Last Filed: 12/01/22 15:28> Lab Results 12/01/22 12/01/22 12/01/22 Range/Units 15:36 15:39 15:39 WBC 6.8 (4.8-10.8) X10*3/uL RBC 4.33 (4.20-5.50) X10*6/uL Hgb 12.1 (12.0-16.0) g/dl Hct 36.7 L (37.0-47.0) % MCV 84.8 (80.0-98.0) fL MCH 27.9 (27.0-33.0) pg MCHC 33.0 (31.0-35.0) g/dl RDW 12.8 (11.0-16.0) % Plt Count 333 D (160-400) X10*3/uL MPV 9.7 (9.4-12.3) fL Immature Gran % (Auto) 0.3 (0.0-0.4) % Neut % (Auto) 64.1 (45-73) % Lymph % (Auto) 27.6 (20-40) % [place] % (Auto) 6.5 (2-11) % Eos % (Auto) 0.6 (0-4) % Baso % (Auto) 0.9 (0-2) % Lymph # (Auto) 1.9 (1.2-4.9) X10*3/uL [place] # (Auto) 0.4 (0.1-1.2) X10*3/uL Eos # (Auto) 0.0 (0.0-0.4) X10*3/uL Baso # (Auto) 0.1 (0.0-0.2) X10*3/uL Abs Immat Gran (auto) 0.02 (0.00-0.03) X10*3/uL Absolute Neuts (auto) 4.4 (2.0-8.3) x10*3/uL Absolute Nucleated RBC 0.000 (0.0-0.012) X10*3/uL Nucleated RBC % (auto) 0.0 (0.0-0.2) /100WBC Sodium 138 (135-145) mmol/L Potassium 5.2 H D (3.3-5.1) mmol/L Chloride 103 (96-108) mmol/L Carbon Dioxide 27 (22-29) mmol/L Anion Gap 13 (12-20) BUN 7 L (9-16) mg/dL Creatinine 0.75 (0.5-1.4) mg/dL Estim Creat Clear Calc 105.0 Estimated GFR > 60 Random Glucose 87 (60-115) mg/dL Calcium 9.6 D (8.4-10.2) mg/dL Magnesium 1.8 (1.6-2.6) mg/dL Total Bilirubin 0.6 (0.0-1.0) mg/dL AST 16 (5-31) U/L ALT 14 (0-31) U/L Alkaline Phosphatase 55 (39-117) U/L Total Protein 7.3 (6.5-8.0) g/dL Albumin 4.2 (3.5-5.0) g/dL Urine Color Urine Appearance Urine pH (5.0-9.0) Ur Specific [place] (1.005-1.025) Urine Protein (Neg-Trace) mg/dL Urine Glucose (UA) (Negative) mg/dL Urine Ketones (Negative) mg/dL Urine Blood (Negative) Urine Nitrite (Negative) Ur Leukocyte Esterase (Negative) Urine Test (NEGATIVE) COVID-19 (ANEUDY) Negative (Negative) COVID-19 Clin Com See Note 12/01/22 12/01/22 Range/Units 15:41 15:41 WBC (4.8-10.8) X10*3/uL RBC (4.20-5.50) X10*6/uL Hgb (12.0-16.0) g/dl Hct (37.0-47.0) % MCV (80.0-98.0) fL MCH (27.0-33.0) pg MCHC (31.0-35.0) g/dl RDW (11.0-16.0) % Plt Count (160-400) X10*3/uL MPV (9.4-12.3) fL Immature Gran % (Auto) (0.0-0.4) % Neut % (Auto) (45-73) % Lymph % (Auto) (20-40) % [place] % (Auto) (2-11) % Eos % (Auto) (0-4) % Baso % (Auto) (0-2) % Lymph # (Auto) (1.2-4.9) X10*3/uL [place] # (Auto) (0.1-1.2) X10*3/uL Eos # (Auto) (0.0-0.4) X10*3/uL Baso # (Auto) (0.0-0.2) X10*3/uL Abs Immat Gran (auto) (0.00-0.03) X10*3/uL Absolute Neuts (auto) (2.0-8.3) x10*3/uL Absolute Nucleated RBC (0.0-0.012) X10*3/uL Nucleated RBC % (auto) (0.0-0.2) /100WBC Sodium (135-145) mmol/L Potassium (3.3-5.1) mmol/L Chloride (96-108) mmol/L Carbon Dioxide (22-29) mmol/L Anion Gap (12-20) BUN (9-16) mg/dL Creatinine (0.5-1.4) mg/dL Estim Creat Clear Calc Estimated GFR Random Glucose (60-115) mg/dL Calcium (8.4-10.2) mg/dL Magnesium (1.6-2.6) mg/dL Total Bilirubin (0.0-1.0) mg/dL AST (5-31) U/L ALT (0-31) U/L Alkaline Phosphatase (39-117) U/L Total Protein (6.5-8.0) g/dL Albumin (3.5-5.0) g/dL Urine Color Yellow Urine Appearance Clear Urine pH 7.0 (5.0-9.0) Ur Specific [place] <= 1.005 (1.005-1.025) Urine Protein Negative (Neg-Trace) mg/dL Urine Glucose (UA) Negative (Negative) mg/dL Urine Ketones Negative (Negative) mg/dL Urine Blood Negative (Negative) Urine Nitrite Negative (Negative) Ur Leukocyte Esterase Negative (Negative) Urine Test NEGATIVE (NEGATIVE) COVID-19 (ANEUDY) (Negative) COVID-19 Clin Com <Anton Becerra - Last Filed: 12/01/22 21:40> Independent Interpretation I performed an independent interpretation of an: CT Scan (Moderate constipation) <Anton Becerra - Last Filed: 12/01/22 21:40> Discharge Plan Discharge Clinical Impression: Ovarian cyst, Constipation <DANIEL Reddy - Last Filed: 12/01/22 15:28> Patient Disposition: Home, Self-Care <DANIEL Reddy Last Filed: 12/01/22 15:28> Instructions: Constipation (ED), Ovarian Cyst (ED) <DANIEL Reddy Last Filed: 12/01/22 15:28> Additional Instructions: Your blood work in urine sample did not show any concerning abnormalities. Your CT scan showed moderate constipation. Your ultrasound showed a right ovarian cyst. You can take [id number] MiraLax every night for the next 2 weeks.. In addition you can take magnesium citrate, drinking entire bottle as a 1 time dose. Increase water and fiber intake in your diet. Use ibuprofen and warm compresses to treat the ovarian cyst. Follow-up with your primary doctor <DANIEL Reddy - Last Filed: 12/01/22 15:28> Prescriptions: No Action ascorbic acid (vitamin C) 500 mg Tablet 500 mg PO DAILY cholecalciferol (vitamin D3) [Vitamin D3] 25 mcg (1,000 unit) Tablet 25 mcg PO DAILY cefuroxime axetil 500 mg Tablet 500 mg PO BID Qty: 20 0RF Rx Instructions: tolerated this medication in the hospital <DANIEL Reddy - Last Filed: 12/01/22 15:28>
[2022-12-01 15:50] LABS: MANUAL DIFF FLAG NO
[2022-12-01 15:53] LABS: Appearance Urine Clear; Color Urine Yellow; Glucose Urine UA Negative (Negative); Leukocyte Esterase Urine Negative (Negative); Nitrite Urine Negative (Negative); Specific Gravity - Urine <= 1.005 (1.005-1.025); Urine Blood Negative (Negative); Urine Ketones Negative (Negative); Urine Protein Negative (Neg-Trace)
[2022-12-01 15:54] LABS: UPreg QC Valid YES; Urine Pregnancy NEGATIVE (NEGATIVE)
[2022-12-01 15:54] LABS: Basophils Absolute Auto 0.1 X10*3/uL (0.0-0.2); Basophils Percent Auto 0.9 % (0-2); Eosinophils Percent Auto 0.6 % (0-4); Hematocrit 36.7 % (37.0-47.0); Hemoglobin 12.1 g/dl (12.0-16.0); Imm Gran Abs Auto 0.02 X10*3/uL (0.00-0.03); Imm Gran Pct Auto 0.3 % (0.0-0.4); Lymphocytes Absolute Auto 1.9 X10*3/uL (1.2-4.9); Lymphocytes Percent Auto 27.6 % (20-40); Mean Corpuscular Hemoglobin 27.9 pg (27.0-33.0); Mean Corpuscular Volume 84.8 fL (80.0-98.0); Mean Platelet Volume 9.7 fL (9.4-12.3); Monocytes Absolute Auto 0.4 X10*3/uL (0.1-1.2); Monocytes Percent Auto 6.5 % (2-11); Neutrophils Absolute Auto 4.4 x10*3/uL (2.0-8.3); Neutrophils Percent Auto 64.1 % (45-73); Platelet Count 333 X10*3/uL (160-400); Red Blood Count 4.33 X10*6/uL (4.20-5.50); Red Cell Distribution Width 12.8 % (11.0-16.0); White Blood Count 6.8 X10*3/uL (4.8-10.8)
[2022-12-01] MEDS: Ketorolac Tromethamine 15 MG/ML VIAL 30 MG IM (16:19)
[2022-12-01] MEDS: 0.9 % Sodium Chloride 1,000 ML 999 ML IV (16:20)
[2022-12-01 16:24] LABS: COVID-19 Test Negative (Negative); IDNOW Serial# 9DB6401D
[2022-12-01 16:30] LABS: Alanine Aminotransferase 14 U/L (0-31); Albumin Level 4.2 g/dL (3.5-5.0); Alkaline Phosphatase 55 U/L (39-117); Anion Gap 13 (12-20); Aspartate Amino Transferase 16 U/L (5-31); Bilirubin Total 0.6 mg/dL (0.0-1.0); Blood Urea Nitrogen 7 mg/dL (9-16); Calcium 9.6 mg/dL (8.4-10.2); Carbon Dioxide 27 mmol/L (22-29); Chloride 103 mmol/L (96-108); Estimated Glomerular Filt Rate > 60; Glucose Random 87 mg/dL (60-115); Magnesium 1.8 mg/dL (1.6-2.6); Potassium 5.2 mmol/L (3.3-5.1); Sodium 138 mmol/L (135-145); Total Protein 7.3 g/dL (6.5-8.0)
[2022-12-01 18:00] VITALS: BP 96/61; PULSE 80; RESP 16; TEMP 36.9; O2SAT 100
--- NOTE | 2022-12-01 21:46 | PC.NURSE ---
Assumed care of pt. at 1900. Pt. resting quietly in bed at this time, no distress noted. Pending results of scans for d/c.
== END 2022-12-01 22:11 | disposition home or self-care (01) ==
PROVIDERS: Physician Assistant; Emergency Provider Emergency Medicine Emergency Medical Services
DX: N83.201 Unspecified ovarian cyst, right side (principal); R10.2 Pelvic and perineal pain; K59.00 Constipation, unspecified; M54.50 Low back pain, unspecified; Z20.822 Contact with and (suspected) exposure to COVID-19; Z20.828 Contact with and (suspected) exposure to other viral communicable diseases; Z79.899 Other long term (current) drug therapy
CPT/HCPCS: 36415; 74176; 76830; 76856; 80053; 81003; 81025; 83735; 85025; 87635; 96360; 96372; 99284; 99285; J1885